=== PATIENT | female | born 1990 | race Caucasian/White ===

== ENCOUNTER 2019-01-01 12:14 | Inpatient (IN) | payer OTHER ==
[~2019-01-01] VITALS: Ht 162.6 cm; Wt 56.7 kg
[~2019-01-01 12:14] MED LIST: CODE1TAB37 PO
[2019-01-02] MEDS ORDERED: Tylenol #3 PO (08:53)
== END 2019-01-02 08:00 | disposition home or self-care (01) | DRG 819 ==
LOC: ER 12:14 → EDSTATUS 13:00 → SEC-K 13:07 → ER 13:07 → SEC-K 16:32 → OB/GYN 16:32 → O/R 01-02 08:00 → CIR.AMB 01-02 08:00 → OB/GYN 01-02 08:59
PROVIDERS: ADMIT Obstetrics & Gynecology
PROC: 0UB64ZZ Excision of Left Fallopian Tube, Percutaneous Endoscopic Approach (ICD-10-PCS; principal; 2019-01-01 13:00)
DX: O00.102 Left tubal pregnancy without intrauterine pregnancy (principal)

== ENCOUNTER → 2020-01-02 | Outpatient (CLI) | payer OTHER ==
[~2020-01-02] MED LIST changes: +Tylenol #3 PO
== END | disposition home or self-care (01) ==
LOC: PRENATAL 13:00
PROVIDERS: ATTEND Obstetrics & Gynecology
DX: O35.3XX0 Maternal care for (suspected) damage to fetus from viral disease in mother, not applicable or unspecified (principal)

== ENCOUNTER 2020-04-09 06:02 | Inpatient (IN) | payer OTHER ==
[~2020-04-09] VITALS: Ht 162.6 cm; Wt 66.7 kg
[2020-04-09] MEDS ORDERED: PRENATAL TABLE1 EAC1 PO (06:34)
[2020-04-09] MEDS ORDERED: FOLIC ACID20 MG PO (06:34)
[2020-04-11] MEDS ORDERED: Tylenol #3 PO (08:52)
== END 2020-04-11 10:43 | disposition home or self-care (01) | DRG 807 ==
LOC: SURG-SUITE 06:02 → LDR 06:02 → SURG-SUITE 17:16
PROVIDERS: ADMIT Obstetrics & Gynecology; ATTEND Obstetrics & Gynecology
PROC: 10E0XZZ Delivery of Products of Conception, External Approach (ICD-10-PCS; principal; 2020-04-09)
PROC: 10907ZC Drainage of Amniotic Fluid, Therapeutic from Products of Conception, Via Natural or Artificial Opening (ICD-10-PCS; 2020-04-09)
PROC: 4A1HXCZ Monitoring of Products of Conception, Cardiac Rate, External Approach (ICD-10-PCS; 2020-04-09)
DX: O80 Encounter for full-term uncomplicated delivery (principal); Z37.0 Single live birth; Z3A.39 39 weeks gestation of pregnancy; Z20.828 Contact with and (suspected) exposure to other viral communicable diseases

== ENCOUNTER 2022-08-12 09:00 | Outpatient (CLI) | payer OTHER ==
[~2022-08-12 09:00] MED LIST changes: +FOLIC ACID20 MG PO; +PRENATAL TABLE1 EAC1 PO
== END 2022-08-12 09:10 | disposition home or self-care (01) ==
LOC: PPH VACUNA 09:00
PROVIDERS: ATTEND Emergency Medicine Pediatric Emergency Medicine
DX: Z23 Encounter for immunization (principal)